=== PATIENT | male | born 1955 | race Caucasian/White ===

== ENCOUNTER 2017-08-10 22:00 | Emergency (ER) | payer OTHER ==
[2017-08-10] MEDS ORDERED: Ondansetron 4 MG/2 ML SDV IVPUSH ONE (22:18)
[2017-08-10] MEDS ORDERED: HYDROmorphone 2 MG/ML SDV IVPUSH ONE (22:22)
[2017-08-10] MEDS ORDERED: Sodium Chloride 0.9% 1,000 ML IV SCH (22:30)
[2017-08-10] MEDS: Sodium Chloride 0.9% 10 ML Syringe FLUSH PRN ×2 (22:31→23:13)
[2017-08-10] MEDS ORDERED: Iopamidol 755 Mg/ML 100 ML Bottle IV ONE (23:14)
[2017-08-10] MEDS ORDERED: Ketorolac 30 MG/ML SDV IVPUSH ONE (23:27)
[2017-08-10] MEDS ORDERED: Tamsulosin 0.4 MG Cap.ER PO ONE (23:27)
[2017-08-10] MEDS ORDERED: Metoclopramide 10 MG/2 ML SDV IV STA (23:29)
[2017-08-11] MEDS ORDERED: Acetaminophen/oxyCODONE 325-5 MG Tab PO ONE (00:24)
--- NOTE | 2017-08-11 00:24 | EDM.PDOC ---
ED HPI GENERAL MEDICAL PROBLEM - General Chief Complaint: Abdominal Pain Stated Complaint: LOWER ABD PAIN Time Seen by Provider: 08/10/17 22:16 Source of Information: Reports: Patient History Limitations: Reports: Other (pain) - History of Present Illness INITIAL COMMENTS - FREE TEXT/NARRATIVE: 62 years old w m came to the due to acute pain at his abd, more so at his left lover quadrant of his abdomen. Pt took a nap and as he got out of his bed, the pain started, acutely severe. Pt had a kidney stone in the past. No trauma, pt vomited several times on way to the ed, felt extremely nauseated, diaphoretic. denies h/o HTN, etoh or drug use. No F/C. BP 103/57 Puls 50 RR 20 O2 sat 100% on RA. Temp 34.6 Onset: Today Onset Date: 08/10/17 Onset Time: 21:00 Duration: Hour(s): Location: Reports: Abdomen Quality: Reports: Ache, Burning, Dull, Stabbing, Throbbing Severity: Moderate Improves with: Reports: Medication, Rest Worsens with: Reports: Movement Context: Reports: Other (had a kidneystone in the past) Associated Symptoms: Reports: Diaphoresis, Loss of Appetite, Nausea/Vomiting, Weakness Left Abdominal Pain Score (Numeric/FACES): 8 - Related Data Allergies Allergy/AdvReac Type Severity Reaction Status Date / Time Penicillins Allergy Cannot Verified 08/10/17 22:13 Remember Home Meds: Home Meds cycloSPORINE [Restasis] 1 drop EYEBOTH BID 08/10/17 [History] Tamsulosin [Tamsulosin 24 Hr] 0.4 mg PO DAILY #5 cap.er 08/11/17 [Rx] Past Medical History - Past Health History Medical/Surgical History: Denies Medical/Surgical History Social & Family History - Tobacco Use Smoking Status *Q: Never Smoker - Caffeine Use Caffeine Use: Reports: Coffee - Recreational Drug Use Recreational Drug Use: No ED ROS GENERAL - Review of Systems Review Of Systems: See Below Constitutional: Reports: No Symptoms HEENT: Reports: No Symptoms Respiratory: Reports: No Symptoms Cardiovascular: Reports: No Symptoms Endocrine: Reports: No Symptoms GI/Abdominal: Reports: Nausea, Vomiting : Reports: No Symptoms, Other (unable to void) Musculoskeletal: Reports: No Symptoms Skin: Reports: No Symptoms Neurological: Reports: No Symptoms Psychiatric: Reports: No Symptoms Hematologic/Lymphatic: Reports: No Symptoms Immunologic: Reports: No Symptoms ED EXAM, RENAL/ - Physical Exam Exam: See Below Exam Limited By: Other (abd. pain) General Appearance: Alert, WD/WN, Moderate Distress Eye Exam: Bilateral Eye: Normal Inspection Ears: Normal External Exam Nose: Normal Inspection Throat/Mouth: Normal Inspection, Normal Lips Head: Atraumatic, Normocephalic Neck: Normal Inspection, Supple, Non-Tender Respiratory/Chest: No Respiratory Distress, Lungs Clear Cardiovascular: Normal Peripheral Pulses, Regular Rate, Rhythm, No Edema, No Gallop, No JVD, No Murmur, No Rub GI/Abdominal: Tender (generalized, more so at his left lower abd. no guiarding, no rebound) (Male) Exam: No Hernia, Normal Inspection Rectal (Males) Exam: Deferred Back Exam: Normal Inspection, Full Range of Motion Extremities: Normal Inspection, Normal Range of Motion, Non-Tender Neurological: Alert, Oriented, CN II-XII Intact, Normal Cognition Psychiatric: Normal Affect, Normal Mood Skin Exam: Warm, Dry, Intact, No Rash, Pallor Lymphatic: No Adenopathy Course - Vital Signs Text/Narrative:: 62 years old w m came to the due to acute pain at his abd, more so at his left lover quadrant of his abdomen. Pt took a nap and as he got out of his bed, the pain started, acutely severe. Pt had a kidney stone in the past. No trauma, pt vomited several times on way to the ed, felt extremely nauseated, diaphoretic. denies h/o HTN, etoh or drug use. No F/C. BP 103/57 Pulse 50 RR 20 O2 sat 100% on RA. Temp 34.6. Pt was not able to void initially PE: WNWD WM in extreme abd. pain with nausea, diaphoretic. LLQ abd, pain with palp, no guarding, no rebound, decr Bowelsounds Labs: Ua pos for ketons and hematuria. UWBC 5-10, WBC 10K, HGB 16.4 Na 137 K 3.8 BUN 18 Cr. 1.O, Glc 147 GFR > 60 Amylase 118 Imaging: CT abd/pelvis, no contrast: Prox left ureter 2 4 mm stones with moderate hydronephrosis with left perinephritic edema. Impression: Prox left ureter 2 4 mm stones with moderate hydronephrosis with left perinephritic edema, dehydration, gastritis, UTI( non symptomatic) Tx: NS, Zofran and Dilaudid 0.5 mg initially, after CT results: Toradol, Flomax Reexam: Improved,pt was painfree on D/C to home 1210 am Consultation: Dr. Ovalle, Urologist, [facility]: Stent placement is indicated if septic or pain can not be controlled. A 4 mm stone, pt should be able to pass. If the pain returns, pt will be admitted for paincontrol and pssible stent placement on Sunday. Plan: D/C with instructions. Pt was made aware he was given 0.5 mg Dilaudid Last Recorded V/S: Last Vital Signs Temp 34.6 C L 08/10/17 22:16 Pulse 54 L 08/11/17 00:35 Resp 20 08/10/17 22:16 BP 107/66 08/11/17 00:35 Pulse Ox 100 08/10/17 22:16 - Orders/Labs/Meds Orders: Active Orders 24 hr Category Date Time Status Abdomen Pelvis wo Cont [CT] Stat Exams 08/10/17 22:48 Taken Saline Lock Insert [OM.PC] Routine Oth 08/10/17 22:23 Ordered Labs: Laboratory Tests 08/10/17 08/10/17 08/10/17 Range/Units 22:30 22:30 22:55 WBC 10.0 (4.5-12.0) X10-3/uL RBC 5.22 (4.30-5.75) x10(6)uL Hgb 16.4 H (11.5-15.5) g/dL Hct 49.4 (30.0-51.3) % MCV 94.8 (80-96) fL MCH 31.5 (27.7-33.6) pg MCHC 33.2 (32.2-35.4) g/dL RDW 12.9 (11.5-15.5) % Plt Count 322 (125-369) X10(3)uL MPV 8.5 (7.4-10.4) fL Neut % (Auto) 68.8 (46-82) % Lymph % (Auto) 17.3 (13-37) % Ware % (Auto) 11.1 (4-12) % Eos % (Auto) 2 (1.0-5.0) % Baso % (Auto) 1 (0-2) % Neut # (Auto) 6.8 (1.6-8.3) # Lymph # (Auto) 1.7 (0.6-5.0) # Ware # (Auto) 1.1 (0.0-1.3) # Eos # (Auto) 0.2 (0.0-0.8) # Baso # (Auto) 0.1 (0.0-0.2) # Sodium 137 (135-145) mmol/L Potassium 3.8 (3.5-5.3) mmol/L Chloride 106 (100-110) mmol/L Carbon Dioxide 22 L (23-29) mmol/L BUN 18 (8-23) mg/dL Creatinine 0.9 (0.6-1.3) mg/dL Est Cr Clr Drug Dosing 81.60 mL/min Estimated GFR (MDRD) > 60 (>60) BUN/Creatinine Ratio 20.0 (9-20) Glucose 147 H (80-116) mg/dL Calcium 8.9 (8.6-10.2) mg/dL Amylase 118 H (28-100) U/L Urine Color Yellow (YELLOW) Urine Appearance Cloudy (CLEAR) Urine pH 8.0 H (5.0-6.5) Ur Specific [place]tt 1.010 (1.010-1.025) Urine Protein Negative (NEGATIVE) mg/dL Urine Glucose (UA) Normal (NEGATIVE) mg/dL Urine Ketones 15 H (NEGATIVE) mg/dL Urine Occult Blood Large H (NEGATIVE) Urine Nitrite Negative (NEGATIVE) Urine Bilirubin Negative (NEGATIVE) Urine Urobilinogen Normal (NEGATIVE) mg/dL Ur Leukocyte Esterase Small H (NEGATIVE) Urine RBC >100 H (0) Urine WBC 5-10 (0) Ur Squamous Epith Cells Occasional (NS,R,O) Urine Bacteria Few H (NS) Urine Mucus Moderate H (NS) Meds: Medications Discontinued Medications Generic Name Dose Route Start Last Admin Trade Name Freq PRN Reason Stop Dose Admin Hydromorphone HCl 0.5 mg 08/10/17 22:22 08/10/17 22:34 Dilaudid IVPUSH 08/10/17 22:23 0.5 mg ONETIME ONE Administration Sodium Chloride 1,000 mls @ 999 mls/hr 08/10/17 22:30 08/10/17 22:32 Normal Saline IV 125 mls/hr ASDIRECTED CEDRIC Administration Influenza Virus Vaccine 60 mcg 08/11/17 00:36 Fluzone Quad [id number] IM 08/11/17 00:37 .ONCE ONE Iopamidol 100 ml 08/10/17 23:14 08/10/17 23:20 Isovue-370 (76%) IV 08/10/17 23:15 Not Given ONETIME ONE Ketorolac Tromethamine 30 mg 08/10/17 23:27 08/10/17 23:32 Toradol IVPUSH 08/10/17 23:28 30 mg ONETIME ONE Administration Metoclopramide HCl 10 mg 08/10/17 23:29 08/10/17 23:32 Reglan IV 08/10/17 23:30 10 mg ONETIME STA Administration Ondansetron HCl 8 mg 08/10/17 22:18 08/10/17 22:31 Zofran IVPUSH 08/10/17 22:19 8 mg ONETIME ONE Administration Sodium Chloride 10 ml 08/10/17 22:23 08/10/17 23:13 Saline Flush FLUSH 10 ml ASDIRECTED PRN Administration Keep Vein Open Tamsulosin HCl 0.4 mg 08/10/17 23:27 08/10/17 23:46 Flomax PO 08/10/17 23:28 0.4 mg ONETIME ONE Administration Departure - Departure Time of Disposition: 00:24 Disposition: Home, Self-Care 01 Condition: Good Clinical Impression: Urolithiasis Qualifiers: Urinary calculus location: ureter Qualified Code(s): N20.1 - Calculus of ureter - Discharge Information Prescriptions: Tamsulosin [Tamsulosin 24 Hr] 0.4 mg PO DAILY #5 cap.er Instructions: Kidney Stones, [id number] Referrals: PCP,None [Primary Care Provider] - Forms: ED Department Discharge Additional Instructions: Please take Flomax daily, please take Motrin 600 mg every 6 hours with food and percocet for severe pain only. Please come back to the ed if your symptoms get worse acutely. - My Orders Last 24 Hours: My Active Orders 08/10/17 22:23 Saline Lock Insert [OM.PC] Routine 08/10/17 22:48 Abdomen Pelvis wo Cont [CT] Stat - Assessment/Plan Last 24 Hours: My Active Orders 08/10/17 22:23 Saline Lock Insert [OM.PC] Routine 08/10/17 22:48 Abdomen Pelvis wo Cont [CT] Stat
[2017-08-11] MEDS ORDERED: FLU Vacc QS 2017-18 (36mos UP)/PF 60 MCG/0.5 ML Syringe IM ONE (00:36)
== END 2017-08-11 00:35 | disposition home or self-care (01) ==
LOC: FB.ED 22:00
DX: N13.2 Hydronephrosis with renal and ureteral calculous obstruction (principal); N39.0 Urinary tract infection, site not specified; K29.70 Gastritis, unspecified, without bleeding; E86.0 Dehydration; Z88.0 Allergy status to penicillin; Z79.899 Other long term (current) drug therapy
CPT/HCPCS: 36415; 74176; 80048; 81001; 82150; 85025; 96361; 96374; 96375; 99285; A9270; J1170; J1885; J2405; J2765; J7040; J7050

== ENCOUNTER 2022-03-06 08:47 | Emergency (ER) | payer OTHER ==
[2022-03-06] MEDS ORDERED: Lactated Ringers 1,000 ML IV ONE (09:14)
[2022-03-06] MEDS ORDERED: Iopamidol 755 Mg/ML 75 ML Bottle IV ONE (11:20)
[2022-03-06] MEDS ORDERED: Apixaban 5 MG Tab PO SCH (12:30)
[2022-03-06] MEDS ORDERED: Rivaroxaban 15 MG Tab PO STA (12:36)
== END 2022-03-06 13:03 | disposition home or self-care (01) ==
LOC: FB.ED 08:47
DX: I26.94 Multiple subsegmental thrombotic pulmonary emboli without acute cor pulmonale (principal); Z79.899 Other long term (current) drug therapy; Z88.0 Allergy status to penicillin; Z79.01 Long term (current) use of anticoagulants
CPT/HCPCS: 36415; 71046; 71275; 80048; 84484; 85027; 85379; 93005; 93010; 96360; 96361; 99283; 99285-25; A9270-GY; J7120; Q9967